=== PATIENT | female | born 1970 | race Caucasian/White ===

== ENCOUNTER 2023-08-27 11:18 | Outpatient (OUT) | payer OTHER, SELFPAY ==
--- NOTE | 2023-08-27 11:21 | MM_ITS ---
Patient Name: YAZAN SHI MR#: [id number] : 1970 Exam Date: 08/27/2023 Ordering Doctor: Non-Staff Physician RADIOLOGY REPORT PROCEDURE: MM TOMOSYNTHESIS SCREENING BI COMPARISON: MG MAMM SCREEN 3D THAO CAD, 07/10/2021. MG MAMM SCREEN 3D THAO CAD, 07/23/2022. INDICATIONS: screening Calculator Name NCI Breast Cancer Risk Assessment Tool 5 Year Breast Cancer Risk 1.90% Lifetime Breast Cancer Risk 14.00% Personal Breast Cancer No Personal Ovarian Cancer No Treatments None Family Cancers Mother with breast cancer at age 50; Grandmother-maternal with breast cancer at age ~70. LOCATION: [facility] BREAST COMPOSITION: The breasts are heterogeneously dense,which may obscure small masses. FINDINGS: DIAGNOSTIC CATEGORY 2--BENIGN FINDING. NO CHANGE FROM COMPARISON. Scattered benign-appearing calcifications are present. Scattered benign-appearing lymph nodes are present. RIGHT BREAST: No significant suspicious finding. LEFT BREAST: No significant suspicious finding. RECOMMENDATIONS: ROUTINE MAMMOGRAM AND CLINICAL EVALUATION IN 12 MONTHS. PLEASE NOTE: A NORMAL MAMMOGRAM DOES NOT EXCLUDE THE POSSIBILITY OF BREAST CANCER. A CLINICALLY SUSPICIOUS PALPABLE LUMP SHOULD BE BIOPSIED. Dictated by: Stuart Bonds MD on 08/27/2023 at 13:38 Approved by: Stuart Bonds MD on 08/27/2023 at 13:39
== END 2023-08-27 11:19 | disposition home or self-care (01) ==
LOC: MAMMO 11:18
PROVIDERS: PCP Family Medicine
DX: Z12.31 Encounter for screening mammogram for malignant neoplasm of breast (principal); Z15.01 Genetic susceptibility to malignant neoplasm of breast; Z15.09 Genetic susceptibility to other malignant neoplasm; Z80.3 Family history of malignant neoplasm of breast
CPT/HCPCS: 77063; 77067

== ENCOUNTER 2023-08-29 07:28 | Outpatient (OUT) | payer OTHER, SELFPAY ==
--- OUTSIDE RECORDS SUMMARY | 2023-08-29 07:35 | XMS_ITS | CCD ---
Author Organization [facility] Care Team Providers Care Physician In Private Practice Name Role Phone FRANDY HORTON Referring Unavailable HORTON, FRANDY Vásquez Primary Care Unavailable HORTON, FRANDY A Referring Unavailable HORTON, FRANDY Vásquez Primary Care Unavailable JENNYFER, DR HELENA Rondon Consulting Unavailable HORTON, DR FRANDY Vásquez Attending Unavailable HORTON, DR FRANDY Vásquez Admitting Unavailable HORTON, DR FRANDY Vásquez Primary Care Unavailable HORTON, DR FRANDY Vásquez Consulting Unavailable Horton DOFrandy Primary Care Provider SOL, FRANDY Vásquez Referring Unavailable HORTON, FRANDY Vásquez Primary Care Unavailable HORTON, FRANDY Vásquez Referring Unavailable HORTON, FRANDY Vásquez Primary Care Unavailable GRADY, ENEIDA A Attending Unavailable HORTON, FRANDY Vásquez Referring Unavailable HORTON, FRANDY Vásquez Primary Care Unavailable Allergies Allergy Classification Reported Allergen(s) Allergy Type Date of Onset Reaction(s) Facility (1 source) Desonide Drug Allergy 7 [facility] (3 sources) NSAIDs; Translations: [NSAIDS (NON-STEROIDAL ANTI-INFLAMMATORY DRUG)] Drug allergy (disorder) 7 [facility] (1 source) Sulfonamides (Antibiotic) Drug allergy (disorder) 7 [facility] (3 sources) Latex; Translations: [LATEX] Propensity to adverse reactions to drug 4 [facility] (1 source) Non-steroidal anti-inflammatory agent Propensity to adverse reactions to drug 8 [facility] (3 sources) Sulfonamides (Antibiotic); Translations: [SULFA (SULFONAMIDE ANTIBIOTICS)] Propensity to adverse reactions to drug 8 [facility] Medications Current Medications Medication Drug Class(es) Dates Sig (Normalized) Sig (Original) phentermine hydrochloride 37.5 mg oral tablet (1 source) Sympathomimetic Amine Anorectic Start: 10-31-2022 phentermine (ADIPEX-P) 37.5 mg tablet Problems Active Problems Problem Classification Problem Date Documented Date Episodic/Chronic Abdominal pain (1 source) Generalized abdominal pain; Translations: [Generalized abdominal pain] Onset: 03-11-2022 Episodic Other screening for suspected conditions (not mental disorders or infectious disease) (4 sources) Encounter for screening mammogram for malignant neoplasm of breast; Translations: [ENC SCR MAMMO MALIG NEOPLASM BREAST] Onset: 07-23-2022 Episodic Residual codes; unclassified (1 source) Family history of malignant neoplasm of breast; Translations: [FAMILY HX MALIG NEOPLASM OF BREAST] Onset: 07-27-2022 Episodic Residual codes; unclassified (1 source) Pain, unspecified; Translations: [Pain, unspecified] Onset: 06-10-2023 Episodic Residual codes; unclassified (1 source) Other specified personal risk factors, not elsewhere classified; Translations: [Other specified personal risk factors, not elsewhere classified] Onset: 08-07-2023 Episodic Residual codes; unclassified (1 source) Genetic susceptibility to malignant neoplasm of breast; Translations: [Genetic susceptibility to malignant neoplasm of breast] Onset: 08-07-2023 Episodic Residual codes; unclassified (1 source) Genetic susceptibility to other malignant neoplasm; Translations: [Genetic susceptibility to other malignant neoplasm] Onset: 08-07-2023 Episodic Unclassified (1 source) Consult Onset: 08-07-2023 Past or Other Problems Problem Classification Problem Date Documented Date Episodic/Chronic Residual codes; unclassified (1 source) BRCA2 gene mutation positive; Translations: [Genetic susceptibility to malignant neoplasm of breast] Onset: 01-09-2023 01-09-2023 Episodic Results Test Name Value Interpretation Reference Range Facility MG MAMM SCREEN 3D THAO CADon 07-23-2022 MG MAMM SCREEN 3D THAO CAD Patient: YAZAN SIN Exam Date: 07/23/2022 : 1970 Gender:F Ordering : DR FRANDY HORTON DJenyOJeny Admission #: [id number] Family : Order #: [id number] CLICK HERE TO VIEW EXAM RADIOLOGY REPORT PROCEDURE: MAMMOGRAM SCREENING 3D BILATERAL CAD COMPARISON: MG MAMM SCREEN 3D THAO CAD, 07/07/2020. MG MAMM SCREEN 3D THAO CAD, 07/10/2021. INDICATIONS: Screening for malignant neoplasm of breast Calculator Name NCI Breast Cancer Risk Assessment Tool 5 Year Breast Cancer Risk 1.80% Lifetime Breast Cancer Risk 14.30% Personal Breast Cancer No Personal Ovarian Cancer No Treatments None Family Cancers Mother with breast cancer at age 50; Grandmother-maternal with breast cancer at age 70. LOCATION: [facility] BREAST COMPOSITION: Heterogeneously dense,which may obscure small masses. FINDINGS: DIAGNOSTIC CATEGORY 2--BENIGN FINDING. NO CHANGE FROM COMPARISON. Scattered benign-appearing nodules are present. Scattered benign-appearing calcifications are present. Scattered benign-appearing lymph nodes are present. RIGHT BREAST: No significant suspicious finding. LEFT BREAST: No significant suspicious finding. RECOMMENDATIONS: ROUTINE MAMMOGRAM AND CLINICAL EVALUATION IN 12 MONTHS. PLEASE NOTE: A NORMAL MAMMOGRAM DOES NOT EXCLUDE THE POSSIBILITY OF BREAST CANCER. A CLINICALLY SUSPICIOUS PALPABLE LUMP SHOULD BE BIOPSIED. Dictated by: Helena Burger MD on 07/24/2022 at 08:07 Approved by: Helena Burger MD on 07/24/2022 at 08:08 Normal [facility] NM HEPATOBILIARY SCAN W PHAR MACOLOGICAL INTERVENTIONon 03-11-2022 NE HEPATOBILIARY SCAN W PHARMACOLOGICAL INTERVENTION EXAMINATION: NUCLEAR MEDICINE HEPATOBILIARY SCINTIGRAPHY (HIDA SCAN) WITH EJECTION FRACTION. TECHNIQUE: Approximately 6.37 millicuries Tc99m Mebrofenin (Choletec) was administered IV. Then, dynamic images of the abdomen were obtained in the anterior projection for 60 mins. Slow infusion of 1.36 mcg cholecystokinin was administered intravenously over 30-60 mins. Images were obtained in the BULGARIAN projection and regions of interest were drawn around the gallbladder and ejection fraction was calculated. COMPARISON: No prior for comparison. HISTORY: ORDERING SYSTEM PROVIDED HISTORY: Abdominal pain, generalized TECHNOLOGIST PROVIDED HISTORY: Is the patient ?->No Reason for Exam: Abdominal pain FINDINGS: Prompt, homogenous uptake by the liver is noted with normal appearance of radiotracer excretion into the biliary system. Clearance of bloodpool activity appears appropriate. Gallbladder and small bowel is visualized in appropriate sequence and time. Gallbladder ejection fraction measured 78%. Normal value is >38% for CCK protocol and >33% for Ensure protocol. Note, Ensure normal range is based on a limited study. IMPRESSION: No acute cholecystitis. Gallbladder ejection fraction is approximately 78%. Interpreted by: Ayo Rodriguez MD Signed by: Ayo Rodriguez MD 03/11/22 Final result Normal [facility] US GALLBLADDER RUQon 022 US GALLBLADDER RUQ EXAMINATION: RIGHT UPPER QUADRANT ULTRASOUND 03/11/2022 8:43 am COMPARISON: None. HISTORY: ORDERING SYSTEM PROVIDED HISTORY: Abdominal pain, generalized FINDINGS: LIVER: The liver demonstrates normal echogenicity without evidence of intrahepatic biliary ductal dilatation. There is a small cyst in the liver measuring up to 1.2 x 1.1 x 1.4 cm. Flow in the main portal vein appears to be hepatopetal. Liver length is 13.5 cm. BILIARY SYSTEM: Gallbladder is unremarkable without evidence of pericholecystic fluid, significant wall thickening or stones. Negative sonographic Nino's sign. Common bile duct is within normal limits measuring 3.8 mm. RIGHT KIDNEY: The right kidney is grossly unremarkable without evidence of hydronephrosis. PANCREAS: Visualized portions of the pancreas are unremarkable. OTHER: No evidence of right upper quadrant ascites. IMPRESSION: Small liver cyst. Otherwise essentially unremarkable exam Interpreted by: Arsenio Mcginnis MD Signed by: Arsenio Mcginnis MD 03/11/22 Final result Normal [facility] Ambulatory Clinical Summaryo n 02-15-2020 Ambulatory Clinical Summary {[id number]}CD:[id number] Normal [facility] General Surgery Office/Clini c Noteon 02-15-2020 General Surgery Office/Clinic Note Chief Complaint post operative follow up HPI Staff 13 day post operative follow up post EGD and colonoscopy with polypectomy from GE junction and rectum. Continues to experience intermittent episodes of abdominal pain with diarrhea. Taking Protonix with minimal improvement in symptoms. Taking Levsin as needed which is effective. History of Present Illness 2 weeks s/p EGD and colonoscopy; EGD with inflammatory changes/polyp at GI junction, no Salazar's changes; no significant hiatal hernia; colon without evidence of colitis; small inflammatory polyp in rectum; patient still with intermittent crampy abdominal pain and loose stools after eating; no blood; some improvement with Levsin. Review of Systems ROS - Provider Constitutional: no fever, no sweats, no weight loss. Eyes: no glasses, no blurred vision, no visual loss. ENMT: no dentures, no hoarseness, no swallowing difficulties, no hearing loss, no ear infection(s), no nose bleeds. Cardiovascular: normal blood pressure, no chest pain, regular heartbeat, no heart murmur. Respiratory: no shortness of breath, no cough, no asthma, no wheezing. Gastrointestinal: no nausea, no vomiting, moderate diarrhea, no constipation, no blood in stool, no change in bowel habits, moderate abdominal pain, no hepatitis. Genitourinary: no kidney stones, no urine infection, no dysuria. Musculoskeletal: no pain, no weakness. Skin: no changing moles, no rash, no skin lumps. Neurologic: no seizures, no epilepsy, no headache. Psychiatric: no emotional or psychiatric problem. Heme/Lymph: no bleeding problems, no anemia, no blood clots, no transfusions. Allergy/Immunologic: no swollen lymph nodes/glands, no IV drug abuse. Other: Additional ROS info: Except as noted in the above Review of Systems and in the History of Present Illness, all other systems have been reviewed and are negative or noncontributory. Physical Exam Vitals & Measurements T: 37.0 ?C (Tympanic) Assessment/Plan 1. Reflux esophagitis (K21.00: Gastro-esophageal reflux disease with esophagitis, without bleeding) continue Protonix, patient reports GERD controlled now. 2. Epigastric abdominal pain (R10.13: Epigastric pain) likely component of IBS, recommend high fiber diet and daily fiber supplement; Trial of low FODMAP diet; if no improvement, may require small bowel evaluation; call with problems/questions. 3. Postprandial diarrhea (K52.9: Noninfective gastroenteritis and colitis, unspecified) see # 2 Follow-up No qualifying data available Problem List/Past Medical History Ongoing Abnormal abdominal CT scan Colitis Epigastric abdominal pain GERD (gastroesophageal reflux disease) Migraines Occult blood in stools Osteopenia Postprandial diarrhea Reflux esophagitis Historical No qualifying data Procedure/Surgical History Colonoscopy (02/02/2020), EGD - Esophagogastroduodenoscopy (02/02/2020), Entire MPJ - Metacarpophalangeal joint (04/21/2017), Arthroplasty (04/21/2016), Metatarsal bone (04/21/2016), Arthrodesis (04/21/2010), Arthroscopy of shoulder, Bilateral salpingectomy with oophorectomy, Cervical spinal fusion, Cystoscopy, EGD - Esophagogastroduodenoscopy, ELVI - Total abdominal hysterectomy. Medications hyoscyamine Sublingual, 0.125 mg, SubLingual Pantoprazole [address] Tab, 40 mg= 1 tab(s), Oral, Daily Allergies Adhesive Bandage (Rash) NSAIDs (Kidney disease) sulfa drugs (Vomiting) Social History Alcohol Current, Beer, Wine, 1-2 times per month, 12/29/2019 Substance Abuse - Denies Substance Abuse, 12/29/2019 Tobacco Never (less than 100 in lifetime) Tobacco Use:., 12/29/2019 Family History Diabetes mellitus type 2: Father. Hypertension: Mother. Primary malignant neoplasm of female breast: Mother. [facility] Comment on above: Result Comment: Elec tronically Signed By: NORA JAVIER, Aba Stratton.br\Date and Time Signed: 02/15/20 16:26 EDT Outside Colonoscopyon 2019 Outside Colonoscopy [id number]#[id number]:127 [facility] Pathology Noteon 02-04-2020 Pathology Note [id number]#1.00CD:127 [facility] Lab Reportson 01-31-2020 Lab Reports [id number]#[id number]:127 [facility] Provider Letter FTon 01-12 Provider Letter [facility] Phillip Pato [address] [place] [address] Re: YAZAN SIN Date of : 1970 Thank you for your referral of Yazan Sin who was seen on consultation on 12/29/[address] scan, colitis and epigastric pain. I have enclosed my consultation notes for your review. She is scheduled for an EGD and colonoscopy on 02/02/2020. Sincerely, Aba Watt MD General Surgery [facility] Consent for Procedure/Surger yon 01-07-2020 Consent for Procedure/Surgery [id number]:127 Normal [facility] General Surgery Office/Clini c Noteon 01-03-2020 General Surgery Office/Clinic Note Chief Complaint referral for possible EGD and colonoscopy HPI Staff 49 year old female presents on consultation from Dr. Whyte for possible EGD and colonoscopy. Admitted to [facility] 12/18-12/20 for abdominal pain with possible colitis. Improved on IV ATB and steroid. CT ABD/pelvis with colonic wall thickening. Today complains of intermittent abdominal pain, nausea, bloating and heartburn. Blood in stool has resolved. Was discharged on Cipro, Flagyl, Prednisone and Levsin. Has finished all but Cipro which she believes she has 2-[address] Whyte today and placed on Protonix 40mg daily. History of Present Illness 49 yo female with h/o GERD, migraines, recently admitted 12/18 for abdominal pain; abdominal ct scan with thickening of transverse/descending colon; treated for colitis, completed course of prednisone and Flagyl/Cipro; initially had bloody diarrhea, that has resolved, still with mild abdominal pain, intermittent, worse with activity, occasion nausea, bloating and GERD, no emesis; placed on Protonix today. Denies fevers; no h/o similar problems in past; abdominal operations significant for ELVI and bso; had EGD in 2010, wnl; no previous colonoscopy; denies asa or NSAID use; no fmhx of GI malignancy or IBD. Review of Systems PHQ Score Initial Depression Screen Score: 0 ROS - Provider Constitutional: no fever, no sweats, no weight loss. Eyes: no glasses, no blurred vision, no visual loss. ENMT: no dentures, no hoarseness, no swallowing difficulties, no hearing loss, no ear infection(s), no nose bleeds. Cardiovascular: normal blood pressure, no chest pain, regular heartbeat, no heart murmur. Respiratory: no shortness of breath, no cough, no asthma, no wheezing. Gastrointestinal: yes nausea, no vomiting, mild diarrhea, no constipation, yes blood in stool, no change in bowel habits, mild abdominal pain, no hepatitis. Genitourinary: no kidney stones, no urine infection, no dysuria. Musculoskeletal: no pain, no weakness. Skin: no changing moles, no rash, no skin lumps. Neurologic: no seizures, no epilepsy, no headache. Psychiatric: no emotional or psychiatric problem. Heme/Lymph: no bleeding problems, no anemia, no blood clots, no transfusions. Allergy/Immunologic: no swollen lymph nodes/glands, no IV drug abuse. Other: Additional ROS info: Except as noted in the above Review of Systems and in the History of Present Illness, all other systems have been reviewed and are negative or noncontributory. Physical Exam Vitals & Measurements T: 36.7 ?C (Tympanic) HR: 76(Peripheral) RR: 16 BP: 132/78 HT: 160.0 cm HT: 160.0 cm WT: 73.2 kg WT: 73.2 kg BMI: 28.59 HEENT: normal conjunctiva, sclera clear, no scleral icterus, EOM intact, PERRLA. oral mucosa moist without lesions Neck: trachea midline , no mass, symmetric, no thyromegaly or nodules. no adenopathy Respiratory: lungs CTA, respirations non labored. Cardiovascular: regular rate and rhythm, no murmur, , no pedal edema or varicosities. Gastrointestinal: soft, non distended, mild tenderness, mid abdomen and epigastrium; no peritoneal signs; no masses, no palpable hernias, diastasis recti no, no hepatosplenomegaly. normal bs Lymphatic: no cervical adenopathy, no axillary adenopathy, no inguinal adenopathy. Musculoskeletal: normalgait, digits and nails without infection, nodes, cyanosis, clubbing. Skin: no rashes, no lesions, no ulcers, no subcutaneous nodules, induration. Psychiatric/Neuro: oriented to time, place, person, judgement normal, affect appropriate for age, insight intact, no focal deficits. Tests: labs reviewed, x-rays reviewed, review of old records completed, Discussed surgical options, risks, and possible complications with patient. Assessment/Plan 1. Abnormal abdominal CT scan (R93.5: Abnormal findings on diagnostic imaging of other abdominal regions, including retroperitoneum) plan EGD and colonoscopy under anesthesia for further evaluation, informed consent obtained. patient understands the risks associated with COVID-19, and the need for preoperative testing with self-isolation until the procedure. 2. Colitis (K52.9: Noninfective gastroenteritis and colitis, unspecified) see # 1 3. Epigastric abdominal pain (R10.13: Epigastric pain) see # 1 4. GERD (gastroesophageal reflux disease) (K21.9: Gastro-esophageal reflux disease without esophagitis) see #1 Follow-up No qualifying data available Patient Education Colonoscopy Esophagogastroduodenoscopy Problem List/Past Medical History Ongoing Abnormal abdominal CT scan Colitis Epigastric abdominal pain GERD (gastroesophageal reflux disease) Migraines Occult blood in stools Osteopenia Historical No qualifying data Procedure/Surgical History Entire MPJ - Metacarpophalangeal joint (04/21/2017), Arthroplasty (04/21/2016), Metatarsal bone (04/21/2016), Arthrodesis (04/21/2010), Arthroscopy of shoulder, Bilateral salpingectomy with oophorectomy, Cervical spinal fusion, Cystoscopy, EGD - Esophagogastroduodenoscopy, ELVI - Total abdominal hysterectomy. Medications ciprofloxacin 500 mg Tab hyoscyamine Sublingual Allergies Adhesive Bandage (Rash) NSAIDs (Kidney disease) sulfa drugs (Vomiting) Social History Alcohol Current, Beer, Wine, 1-2 times per month, 12/29/2019 Substance Abuse - Denies Substance Abuse, 12/29/2019 Tobacco Never (less than 100 in lifetime) Tobacco Use:., 12/29/2019 Family History Diabetes mellitus type 2: Father. Hypertension: Mother. Primary malignant neoplasm of female breast: Mother. Normal [facility] Comment on above: Result Comment: Elec tronically Signed By: NORA JAVIER, Aba Stratton.matty\Date and Time Signed: 01/03/20 16:37 EDT Patient Educationon 01-03-20 20 Patient Education Colonoscopy A colonoscopy is an exam to evaluate your entire colon. In this exam, your colon is cleansed. A long fiberoptic tube is inserted through your rectum and into your colon. The fiberoptic scope (endoscope ) is a long bundle of enclosed and very flexible fibers. These fibers transmit light to the area examined and send images from that area to your caregiver. Discomfort is usually minimal. You may be given a drug to help you sleep (sedative ) during or prior to the procedure. This exam helps to detect lumps (tumors ), polyps, inflammation, and areas of bleeding. Your caregiver may also take a small piece of tissue (biopsy ) that will be examined under a microscope. LET YOUR CAREGIVER KNOW ABOUT: ? Allergies to food or medicine. ? Medicines taken, including vitamins, herbs, eyedrops, yegt-yrv-ftmuqyf medicines, and creams. ? Use of steroids (by mouth or creams). ? Previous problems with anesthetics or numbing medicines. ? History of bleeding problems or blood clots. ? Previous surgery. ? Other health problems, including diabetes and kidney problems. ? Possibility of , if this applies. BEFORE THE PROCEDURE ? A clear liquid diet may be required for 2 days before the exam. ? Ask your caregiver about changing or stopping your regular medications. ? Liquid injections (enemas ) or laxatives may be required. ? A large amount of electrolyte solution may be given to you to drink over a short period of time. This solution is used to clean out your colon. ? You should be present 60 minutes prior to your procedure or as directed by your caregiver. AFTER THE PROCEDURE ? If you received a sedative or pain relieving medication, you will need to arrange for someone to drive you home. ? Occasionally, there is a little blood passed with the first bowel movement. Do not be concerned. FINDING OUT THE RESULTS OF YOUR TEST Not all test results are available during your visit. If your test results are not back during the visit, make an appointment with your caregiver to find out the results. Do not assume everything is normal if you have not heard from your caregiver or the medical facility. It is important for you to follow up on all of your test results. HOME CARE INSTRUCTIONS ? It is not unusual to pass moderate amounts of gas and experience mild abdominal cramping following the procedure. This is due to air being used to inflate your colon during the exam. Walking or a warm pack on your belly (abdomen ) may help. ? You may resume all normal meals and activities after sedatives and medicines have worn off. ? Only take snhi-wil-lhjlpih or prescription medicines for pain, discomfort, or fever as directed by your caregiver. Do not use aspirin or blood thinners if a biopsy was taken. Consult your caregiver for medicine usage if biopsies were taken. SEEK IMMEDIATE MEDICAL CARE IF: ? You have a fever. ? You pass large blood clots or fill a toilet with blood following the procedure. This may also occur 10 to 14 days following the procedure. This is more likely if a biopsy was taken. ? You develop abdominal pain that keeps getting worse and cannot be relieved with medicine. Document Released: 04/04/2001 Document Revised: 06/29/2012 Document Reviewed: 11/17/2008 ExitCare? Patient Information ?2013 [employer]. [facility] Esophagogastroduodenoscopy Esophagogastroduodenoscopy (EGD) is a procedure to examine the lining of the esophagus, stomach, and first part of the small intestine (duodenum ). A long, flexible, lighted tube with a camera attached (endoscope ) is inserted down the throat to view these organs. This procedure is done to detect problems or abnormalities, such as inflammation, bleeding, ulcers, or growths, in order to treat them. The procedure lasts about 5?20 minutes. It is usually an outpatient procedure, but it may need to be performed in emergency cases in the hospital. LET YOUR CAREGIVER KNOW ABOUT: ? Allergies to food or medicine. ? All medicines you are taking, including vitamins, herbs, eyedrops, and djsu-pft-snsangg medicines and creams. ? Use of steroids (by mouth or creams). ? Previous problems you or members of your family have had with the use of anesthetics. ? Any blood disorders you have. ? Previous surgeries you have had. ? Other health problems you have. ? Possibility of , if this applies. RISKS AND COMPLICATIONS Generally, EGD is a safe procedure. However, as with any procedure, complications can occur. Possible complications include: ? Infection. ? Bleeding. ? Tearing (perforation ) of the esophagus, stomach, or duodenum. ? Difficulty breathing or not being able to breath. ? Excessive sweating. ? Spasms of the larynx. ? Slowed heartbeat. ? Low blood pressure. BEFORE THE PROCEDURE ? Do not eat or drink anything for 6?8 hours before the procedure or as directed by your caregiver. ? Ask your caregiver about changing or stopping your regular medicines. ? If you wear dentures, be prepared to remove them before the procedure. ? Arrange for someone to drive you home after the procedure. PROCEDURE ? A vein will be accessed to give medicines and fluids. A medicine to relax you (sedative ) and a pain reliever will be given through that access into the vein. ? A numbing medicine (local anesthetic ) may be sprayed on your throat for comfort and to stop you from gagging or coughing. ? A mouth guard may be placed in your mouth to protect your teeth and to keep you from biting on the endoscope. ? You will be asked to lie on your left side. ? The endoscope is inserted down your throat and into the esophagus, stomach, and duodenum. ? Air is put through the endoscope to allow your caregiver to view the lining of your esophagus clearly. ? The esophagus, stomach, and duodenum is then examined. During the exam, your caregiver may: ? Remove tissue to be examined under a microscope (biopsy ) for inflammation, infection, or other medical problems. ? Remove growths. ? Remove objects (foreign bodies ) that are stuck. ? Treat any bleeding with medicines or other devices that stop tissues from bleeding (hot cauters, clipping devices ). ? Widen (dilate ) or stretch narrowed areas of the esophagus and stomach. ? The endoscope will then be withdrawn. AFTER THE PROCEDURE ? You will be taken to a recovery area to be monitored. You will be able to go home once you are stable and alert. ? Do not eat or drink anything until the local anesthetic and numbing medicines have worn off. You may choke. ? It is normal to feel bloated, have pain with swallowing, or have a sore throat for a short time. This will wear off. ? Your caregiver should be able to discuss his or her findings with you. It will take longer to discuss the test results if any biopsies were taken. Document Released: 08/08/2005 Document Revised: 03/24/2013 Document Reviewed: 03/10/2013 ExitCare? Patient Information ?2013 [employer]. [facility] Ambulatory Clinical Summaryo n 12-29-2019 Ambulatory Clinical Summary {[id number] [facility] RAD - CT Reporton 12-24-2019 RAD - CT Report [id number] [facility] Encounters Encounter Date Encounter Type Care Provider Facility Start: 08-07-2023 End: 08-07-2023 ambulatory ENEIDA GRADY [facility] Start: 06-10-2023 ambulatory FRANDY HORTON [facility] Start: 05-14-2023 Telephone encounter Thad Choudhary [facility] Start: 07-23-2022 End: 07-24-[address] HELENA BURGER Facility: Start: 03-11-2022 End: 03-14-2022 ambulatory FRANDY Fahad HORTON [facility] Plan of Treatment Date Care Activity Detail Author Start: 12-29-2031 DTaP,Tdap and Td Vaccines (2 - Td or Tdap) DTaP,Tdap and Td Vaccines (2 - Td or Tdap) [facility] Start: 01-10-2024 Adult BMI Screening Adult BMI Screening [facility] Start: 07-01-2023 End: 07-01-2023 Patient encounter procedure 07/01/2023 2:30 PM EDT Office Visit [facility] [address] [place] [address] [address] [place] [address] Kiara Maldonado, DRIVEWAY ATTENDANT-CLIENT SUPPORT ANALYST [address] [facility] [place] [address] [facility] Start: 12-28-2022 Tobacco Screening Tobacco Screening [facility] Start: 12-20-2022 Influenza vaccination Influenza Vaccine [facility] Start: 2020 Administration of varicella zoster vaccine Zoster (Shingles) Vaccine (1 of 2) [facility] Start: 1988 Adult BMI Follow Up Plan Adult BMI Follow Up Plan [facility] Start: 1982 Depression Screening Depression Screening [facility] Immunizations Immunization Date Immunization Notes Care Provider Fa cility 12-28-2021 tetanus toxoid, redu darling diphtheria toxoid, and acellular pertussis vaccine, adsorbed Litisha Easter [facility] Payers Date Payer Category Payer Unknown [employer] [id number] 2021-Present [phone] [address] [place] [address] [id number] 2013 Unknown [id number] 1970 Unknown [id number] 1970 Unknown [id number] 1970 Unknown [id number] 1970 Unknown [id number] 1970 Unknown [id number] 1970 Unknown [id number] 1959 Unknown [id number] Social History Date Type Detail Facility Start: 10-11-2017 Tobacco smoking stat [facility] Never smoked tobacco [facility] Start: 10-11-2017 Tobacco use and exposure Smokeless tobacco non-user [facility] Start: 01-09-2023 Alcohol intake Current drinke r of alcohol (finding) [facility] Start: 05-31-2020 End: 01-09-2023 History of Social function [facility] Start: 05-31-2020 End: 01-09-2023 Tobacco use panel [facility] Childcare Unknown [facility] Start: 10-11-2017 Tobacco Comment rarely [facility] Start: 1970 Sex Assigned At Not on file P [facility] Note 05-14-2023 Telephone Encounter - Thad Choudhary CMA - 05/14/2023 2:53 PM EST Note Date & Type Note Facility 05-14-2023 Miscellaneous Notes Formattin g of this note might be different from the original. Called Yazan Sin and left a voicemail requesting that she call the office to reschedule her missed appointment on on 05/14/23. documented in this encounter [facility] Telephone encounter Note 05-14-2023 Telephone Encounter - Thad Choudhary CMA - 05/14/2023 2:53 PM EST Note Date & Type Note Facility 05-14-2023 Telephone encount er Note Called Yazan Sin and left a voicemail requesting that she call the office to reschedule her missed appointment on on 05/14/23. [facility] Instructions Note Date & Type Note Facility Instructions Not on filedocumented in this en counter [facility] Summary Purpose Family History No Family History Records FoundNo Family History Records FoundNo Family History Records FoundNo Family History Records FoundNo Family History Records Found Advance Directives No Advanced Directives Records FoundNo Advanced Directives Records FoundNo Advanced Directives Records FoundNo Advanced Directives Records FoundNo Advanced Directives Records Found Additional Source Comments INFORMATION SOURCE (unrecogn ized section and content) DATE CREATED AUTHOR 02/16/2020 [facility] DATE CREATED AUTHOR AUTHOR'S ORGANIZ ATION 03/14/2022 [facility] DATE CREATED AUTHOR AUTHOR'S ORGANIZ ATION [facility]/[address] [facility] DATE CREATED AUTHOR AUTHOR'S ORGANIZ ATION 06/11/2023 [facility] DATE CREATED AUTHOR AUTHOR'S ORGANIZ ATION 08/09/2023 [facility] Care Teams (unrecognized sec tion and content) Physician In Private Practice Relationship Specialty Start Date End Date Frandy Horton DO [address] [place] [address] PCP - General Family Medicine 06/16/21 FOR RECORDS PERTAINING TO PATIENTS WHO ARE OR HAVE BEEN ENROLLED IN A CHEMICAL DEPENDENCY/SUBSTANCEABUSE PROGRAM, SOME INFORMATION MAY BE OMITTED. This clinical summary was aggregated from multiple sources. Caution should be exercised in using it in the provision of clinical care. This summary normalizes information from multiple sources, and as a consequence, information in this document may materially change the coding, format and clinical context of patient data. In addition, data may be omitted in some cases. CLINICAL DECISIONS SHOULD BE BASED ON THE PRIMARY CLINICAL RECORDS. [employer] provides no warranty or guarantee of the accuracy or completeness of information in this document.
[2023-08-29 08:44] LABS: Basophils Percent Auto 0.4 % (0.2-2.0); Eosinophils Absolute Auto 0.1 10^3/uL (0.0-0.7); Eosinophils Percent Auto 1.2 % (0.9-7.0); Hematocrit 38.7 % (36.0-48.0); Immature Granulocytes Abs Auto 0.01 10^3/uL (0.00-0.03); Immature Granulocytes Pct Auto 0.2 % (0.0-0.5); Lymphocytes Absolute Auto 1.6 10^3/uL (1.2-3.8); Lymphocytes Percent Auto 31.3 % (20.5-60.0); Mean Corpuscular HGB Conc 33.6 g/dL (29.9-35.2); Mean Corpuscular Hemoglobin 29.5 pg (26.7-34.0); Mean Platelet Volume 9.9 fL (9.5-13.5); Monocytes Absolute Auto 0.4 10^3/uL (0.3-0.8); Neutrophils Percent Auto 58.9 % (43.0-75.0); Platelet Count 300 10^3/uL (150-450)
[2023-08-29 10:05] LABS: Alanine Aminotransferase 19 U/L (14-59); Albumin Globulin Ratio 1.3; Albumin Level 3.9 g/dL (3.4-5.0); Alkaline Phosphatase 76 U/L (46-116); Anion Gap 12.1; Aspartate Amino Transferase 12 U/L (15-37); BUN Creatinine Ratio 28.6; Bilirubin Total 0.5 mg/dL (0.2-1.0); Calcium 9.5 mg/dL (8.5-10.1); Carbon Dioxide 27.9 mmol/L (21.0-32.0); Chloride 105 mmol/L (98-107); Chol HDL Ratio 2.5; Cholesterol 259 mg/dL (<=200); Estimated GFR (African America >60 (>=60); Estimated GFR (Non-African Ame >60 (>=60); Free T3 3.26 pg/mL (2.18-3.98); Glucose 78 mg/dL (74-106); HDL Cholesterol 105 mg/dL (40-60); Sodium 141 mmol/L (136-145); Total Protein 6.9 g/dL (6.4-8.2); Triglycerides 50 mg/dL (<=150)
[2023-08-29 10:44] LABS: Free T4 1.15 ng/dL (0.76-1.46)
[2023-08-30 04:47] LABS: C-Reactive Protein, Cardiac 2.08 mg/L (0.00-3.00); Estradiol <5.0 pg/mL (.); FSH 56.6 mIU/mL (.); Progesterone 0.3 ng/mL (.); Prolactin 9.5 ng/mL (3.6-25.2)
== END 2023-08-29 07:29 | disposition home or self-care (01) ==
LOC: LAB 07:31
PROVIDERS: PCP Family Medicine; Visit Provider Family Medicine
DX: Z00.00 Encounter for general adult medical examination without abnormal findings (principal)
CPT/HCPCS: 36415; 80053; 80061; 82306; 82607; 82626; 82670; 82746; 83001; 83002; 84144; 84146; 84439; 84443; 84481; 85025; 86140